=== PATIENT | male | born 1970 | race African-American/Black ===

== ENCOUNTER 2017-09-02 10:33 | Emergency (ER) | payer MEDICAID, OTHER ==
[~2017-09-02] VITALS: Ht 175.3 cm; Wt 111.0 kg
[2017-09-02 10:36] VITALS: Ht 175.3 cm; Wt 111.0 kg
[2017-09-02] MEDS ORDERED: SOD CHLORIDE 0.9% 500 ML IV STA (10:37)
[2017-09-02] MEDS ORDERED: LORAZEPAM 2 MG INJ IV STA (10:37)
[2017-09-02] MEDS ORDERED: SOD CHLORIDE 0.9% 1,000 ML IV STA ×2 (10:37→13:01)
[2017-09-02 11:01] LABS: BASOPHILS % 0.3 % (0.0-2.0); EOSINOPHILS % 0.1 % (0.0-7.0); HEMATOCRIT 41.8 % (42.0-52.0); HEMOGLOBIN 13.8 g/dl (14.0-18.0); LYMPHOCYTES % 7.3 % (15.0-51.0); MEAN CORPUSCULAR HEMOGLOBIN 28.3 pg (29.0-33.0); MEAN CORPUSCULAR VOLUME 85.7 fl (82.0-101.0); MEAN PLATELET VOLUME 9.4 fl (7.4-10.4); MONOCYTE # 0.5 10^3/ul (0.3-0.9); MONOCYTES % 3.3 % (0.0-11.0); NEUTROPHIL # 12.3 10^3/ul (1.6-7.5); NEUTROPHILS % 88.6 % (39.0-77.0); PLATELET COUNT 158 10^3/UL (140-415); RED BLOOD COUNT 4.88 10^6/ul (4.70-6.10); WHITE BLOOD COUNT 13.9 10^3/ul (4.8-10.8)
[2017-09-02 11:23] LABS: ANION GAP 15 (8-16); BLOOD UREA NITROGEN 24 mg/dl (7-20); CALCIUM 9.1 mg/dl (8.4-10.2); CARBON DIOXIDE 30 mmol/L (21-31); CHLORIDE 106 mmol/L (97-110); CREATININE 1.15 mg/dl (0.61-1.24); ETHANOL < 10.0 mg/dl; GLUCOSE 124 mg/dl (70-220); SODIUM 146 mmol/L (135-144)
[2017-09-02] MEDS ORDERED: ONDANSETRON 4 MG INJ IV STA (11:26)
--- NOTE | 2017-09-02 11:47 | RADRPT ---
PROCEDURE: CT Brain without contrast. CLINICAL INDICATION: Altered mental status TECHNIQUE: A CT of the brain was performed on a multi-slice CT scanner utilizing axial imaging fro m the skull base through the vertex without IV contrast. Multiplanar reformatted images were made. Images were reviewed on a PACS workstation. The CTDIvol is 44.26 mGy and the DLP is 720.23 mGycm. One or more of the following dose reduction techniques were used: Automated exposure control. Adjustment of the mA and/or kV according to patient's size. Use of iterative reconstruction technique. DICOM images are available. COMPARISON: None FINDINGS: The sulcal gyral pattern is unremarkable without evidence of effacement. The rees-white matter diff erentiation is intact. No masses, edema or shift is identified. There are no intraparenchymal or extraaxial fluid collecti ons. The visualized paranasal sinuses and mastoid air cells are well-aerated. The skull base and calvari um are intact. IMPRESSION: No acute intracranial abnormalities are identified. RPTAT:AAJJ Physician Jorge Date Time Electronically viewed and signed by Physician Jorge on 09/02/2017 11:47 EDUARDO/
[2017-09-02] MEDS ORDERED: TEMA30CA PO (12:07)
[2017-09-02] MEDS ORDERED: TRAM-40 PO (12:09)
[2017-09-02] MEDS ORDERED: INSU100C SQ (12:09)
[2017-09-02] MEDS ORDERED: APIX5TAB PO (12:11)
[2017-09-02 12:12] LABS: BENZODIAZEPINES Negative (NEGATIVE)
[2017-09-02] MEDS ORDERED: BACL10TA PO (12:12)
[2017-09-02] MEDS ORDERED: CARV25TA97 PO (12:12)
[2017-09-02 12:15] LABS: BARBITURATES Negative (NEGATIVE); CANNABINOIDS Negative (NEGATIVE); COCAINE Negative (NEGATIVE); OPIATES Negative (NEGATIVE)
[2017-09-02] MEDS ORDERED: DOCU250C58 PO (12:16)
[2017-09-02] MEDS ORDERED: FOLI-49 PO (12:18)
[2017-09-02] MEDS ORDERED: ACID1TAB14 PO (12:18)
[2017-09-02] MEDS ORDERED: INSU100I27 SQ (12:19)
[2017-09-02] MEDS ORDERED: LACT10SO5 PO (12:20)
[2017-09-02] MEDS ORDERED: GABA300C16 PO (12:20)
[2017-09-02] MEDS ORDERED: FURO40TA4 PO (12:21)
[2017-09-02] MEDS ORDERED: ESCI10TA PO (12:22)
[2017-09-02] MEDS ORDERED: MAGN400O4 PO (12:22)
[2017-09-02] MEDS ORDERED: MYL80 PO (12:23)
[2017-09-02] MEDS ORDERED: MULTI PO (12:23)
[2017-09-02 13:14] LABS: INR 1.12; PROTIME 14.4 Sec (12.2-14.2); PT RATIO 1.1
[2017-09-02 13:15] LABS: PARTIAL THROMBOPLASTIN TIME 28.8 Sec (25.0-35.0)
[2017-09-02] MEDS ORDERED: DILTIAZEM 25 MG INJ IV ONE ×2 (13:30→16:30)
--- NOTE | 2017-09-02 14:52 | ERD ---
ER Documentation Chief Complaint Chief Complaint bib ra for aloc,blood gloucose 59,d50 given ,tongue bite , possible seizure HPI This is a 46-year-old male history of type 1 diabetes who presents to the emergency room with hypoglycemia and altered mental status. The patient also bit his tongue appears to be confused with a possible seizure. He has no history of seizure. EMS gave the patient dextrose in the field and he has normal glucose now. The patient is a somewhat limited historian even when he clears from what appears to be a seizure. The patient describes a possible cardiac arrest 1 year ago but he is unsure of other medical history. It appears he was given his different insulin rather than his evening dose he was given his daily Humalog. Unclear dose amount. ROS All systems reviewed and are negative except as per history of present illness. Medications Home Meds Reported Medications Simethicone* (Mylicon*) 80 Mg Tab, 80 MG PO Q6H Y for DISTENSION/GAS/BLOATING, TAB 09/02/17 Multivitamins* (Theragran*) 1 Tab Tab, 1 TAB PO DAILY, TAB 09/02/17 Magnesium Hydroxide* (Milk Of Magnesia*) 400 Mg/5 Ml Oral.susp, 30 ML PO Q24H Y for CONSTIPATION, ML 09/02/17 Escitalopram Oxalate* (Lexapro*) 10 Mg Tablet, 10 MG PO DAILY, #30 TAB 09/02/17 Furosemide* (Furosemide*) 40 Mg Tablet, 40 MG PO DAILY, TAB 09/02/17 Lactulose* (Lactulose*) 10 Gm/15 Ml Solution, 10 GM PO Q6 Y for CONSTIPATION, ML 09/02/17 Gabapentin* (Gabapentin*) 300 Mg Capsule, 300 MG PO Q8, #90 CAP 09/02/17 Insulin Detemir (Levemir Flextouch) 100 Unit/1 Ml Insuln.pen, 30 UNIT SQ QPM 09/02/17 Folic Acid* (Folic Acid*) 1 Mg Tablet, 1 MG PO DAILY, TAB 09/02/17 Lactobacillus Acidoph/Bulgaricus* (Floranex*) 1 Each Tablet, 1 TAB.CHEW PO BID, TAB.CHEW 09/02/17 Docusate Sodium* (Colace*) 250 Mg Capsule, 250 MG PO QHS, #30 CAP 09/02/17 Carvedilol* (Coreg*) 25 Mg Tablet, 25 MG PO BID, #60 TAB 09/02/17 Baclofen* (Baclofen*) 10 Mg Tablet, 10 MG PO Q8, TAB 09/02/17 Apixaban* (Eliquis*) 5 Mg Tablet, 5 MG PO BID, TAB 09/02/17 Insulin Lispro (Humalog) 100 Unit/1 Ml Cartridge, 0-10 UNITS SQ AC BREAKFAST 09/02/17 Tramadol Hcl* (Ultram*) 50 Mg Tablet, 50 MG PO Q4 Y for PAIN, TAB 09/02/17 Temazepam* (Temazepam*) 30 Mg Capsule, 30 MG PO HS Y for INSOMNIA, CAP 09/02/17 Allergies Allergies: Coded Allergies: No Known Allergy (Unverified , 09/02/17) PMhx/Soc History of Surgery: Yes (right bka) Anesthesia Reaction: No Hx Neurological Disorder: No Hx Respiratory Disorders: No Hx Cardiac Disorders: Yes (htn) Hx Psychiatric Problems: No Hx Miscellaneous Medical Probl: Yes (dm) Hx Alcohol Use: No Hx Substance Use: No Hx Tobacco Use: No Smoking Status: Never smoker FmHx Family History: diabetes Physical Exam Vitals Vital Signs Date Time Temp Pulse Resp B/P Pulse Ox O2 Delivery O2 Flow Rate FiO2 09/02/17 13:59 105 22 160/75 98 Room Air 09/02/17 10:36 98.1 144 18 141/100 100 Physical Exam General: Well developed, well nourished, no acute distress, appears to be postictal but improving Head: Normocephalic, atraumatic. Eyes: Pupils equally reactive, EOM intact ENT: Moist mucous membranes, abrasion to lateral aspect of tongue Neck: Supple, no lymphadenopathy Respiratory: Lungs clear bilaterally, no distress Cardiovascular: Tachycardia, no murmurs, rubs, or gallops Abdominal: Soft, non-tender, non-distended, no peritoneal signs : Deferred MSK: No edema, no unilateral swelling, 5/5 strength Neurologic: Alert and oriented to person postictal, moving all extremities, normal speech, no focal weakness, no cerebellar signs, no meningismus Skin: No rash Psych: Normal mood Result Diagram: 09/02/17 1055 09/02/17 1055 Results 24 hrs Laboratory Tests Test 09/02/17 10:50 09/02/17 10:51 09/02/17 10:55 09/02/17 11:30 Bedside Glucose 109mg/dL Troponin I < 0.012ng/ml White Blood Count 13.910^3/ul Red Blood Count 4.8810^6/ul Hemoglobin 13.8g/dl Hematocrit 41.8% Mean Corpuscular Volume 85.7fl Mean Corpuscular Hemoglobin 28.3pg Mean Corpuscular Hemoglobin Concent 33.0g/dl Red Cell Distribution Width 14.0% Platelet Count 77327^3/UL Mean Platelet Volume 9.4fl Neutrophils % 88.6% Lymphocytes % 7.3% Monocytes % 3.3% Eosinophils % 0.1% Basophils % 0.3% Nucleated Red Blood Cells % 0.0/100WBC Neutrophils # 12.310^3/ul Lymphocytes # 1.010^3/ul Monocytes # 0.510^3/ul Eosinophils # 0.010^3/ul Basophils # 0.010^3/ul Nucleated Red Blood Cells # 0.010^3/ul Prothrombin Time 14.4Sec Prothrombin Time Ratio 1.1 INR International Normalized Ratio 1.12 Activated Partial Thromboplast Time 28.8Sec Sodium Level 146mmol/L Potassium Level 5.0mmol/L Chloride Level 106mmol/L Carbon Dioxide Level 30mmol/L Anion Gap 15 Blood Urea Nitrogen 24mg/dl Creatinine 1.15mg/dl Glucose Level 124mg/dl Calcium Level 9.1mg/dl Ethyl Alcohol Level < 10.0mg/dl Urine Opiates Screen Negative Urine Barbiturates Negative Urine Amphetamines Screen Negative Urine Benzodiazepines Screen Negative Urine Cocaine Screen Negative Urine Cannabinoids Negative Test 09/02/17 11:51 09/02/17 13:47 09/02/17 14:51 Bedside Glucose 112mg/dL 106mg/dL 81mg/dL Current Medications Medications (Trade) Dose Ordered Sig/Aditya Route PRN Reason Start Time Stop Time Status Last Admin Dose Admin Sodium Chloride 500 ml @ 500 mls/hr Q1H STAT IV 09/02/17 10:37 09/02/17 11:36 DC 09/02/17 10:49 Sodium Chloride (NS) 1,000 ml @ 1,000 mls/hr Q1H STAT IV 09/02/17 10:37 09/02/17 11:36 DC 09/02/17 10:47 Lorazepam (Ativan) 0.5 mg ONCE STAT IV 09/02/17 10:37 09/02/17 10:39 DC 09/02/17 10:47 Ondansetron HCl 4 mg 4 mg ONCE STAT IV 09/02/17 11:26 09/02/17 11:39 DC 09/02/17 11:44 Sodium Chloride (NS) 1,000 ml @ 1,000 mls/hr Q1H STAT IV 09/02/17 13:01 09/02/17 14:00 DC 09/02/17 13:15 Diltiazem HCl (Cardizem Iv) 20 mg ONCE ONCE IV 09/02/17 13:30 09/02/17 13:31 DC 09/02/17 13:15 Procedures/MDM EKG, MONITORS, & DIAGNOSTIC IMAGING: EKG #1 EKG: I reviewed and interpreted a 12-lead EKG. Rhythm: Narrow complex tachycardia with apparent P waves at 140 Ectopy: None Intervals: No abnormalities ST segments: No elevations or depressions T waves: No contiguous inversions Repeat EKG EKG: I reviewed and interpreted a 12-lead EKG. Rhythm: Slower rate around 120 reveals flutter waves consistent with atrial flutter with rapid ventricular response Ectopy: None Intervals: No abnormalities ST segments: No elevations or depressions T waves: No contiguous inversions CT brain: No evidence of acute intracranial process LAB INTERPRETATION: Negative troponin MEDICAL DECISION MAKING: The patient presents with 2 major issues. The first is a seizure, new onset seizure. This is likely secondary to hypoglycemia possibly related to inadvertent or inappropriate dosing of insulin. The patient has since responded. His mental status is improving though he is still occasionally forgetful. It is unclear if this is baseline for the patient may be has some underlying anoxic injury related to what he is describing is a cardiac arrest 1 year ago. From a hypoglycemia standpoint the patient was given a complex carbohydrate meal and his glucose values have been study. The patient was found to have significant tachycardia that was initially thought to be sinus tachycardia. However he was given IV fluids. His rate dropped into the 120s and flutter waves were made available and apparent. The patient was given 20 mg of IV Cardizem with a dramatic rate control. He is now around 100, and remains hemodynamically stable with a negative troponin. He states that he has never known about a diagnosis of atrial fibrillation or atrial flutter. This could be related to underlying cardiac etiology. However , the patient is also reported to be on Eliquis. This does raise the concern of a chronic issue for this patient but he cannot articulate this and he does not have an EMR record that can support this thought process. For this reason I believe he would benefit from inpatient hospitalization and further investigation. ER COURSE: Patient was given IV fluids, small dose of Ativan, seizure precautions were initiated. The patient was given 20 of Cardizem. He has no chest pain and no evidence of ischemia. The patient is stable for transfer at this time. He does not require drips. The patient has no evidence of infectious process and does not require lumbar puncture. I kept the patient and/or family informed of laboratory and diagnostic imaging results throughout the emergency room course. DISPOSITION PLAN: The patient's insurance is capitated to [place]. The patient is agreeable to transfer and stable for transfer. CONSULTATION: Accepting care team and consultations: I discussed the current laboratory data, diagnostic imaging and emergency care provided. Admitting team: Dr William has accepted Admitting team indication: Insurance directed Departure Diagnosis: Primary Impression: Hypoglycemia Additional Impressions: New onset seizure Atrial flutter with rapid ventricular response Condition: Stable Patient Instructions: Hypoglycemia (Low Blood Sugar), Seizure, New Onset, Unk Cause [Adult] Referrals: [facility] YOU HAVE RECEIVED A MEDICAL SCREENING EXAM AND THE RESULTS INDICATE THAT YOU DO NOT HAVE A CONDITION THAT REQUIRES URGENT TREATMENT IN THE EMERGENCY DEPARTMENT. FURTHER EVALUATION AND TREATMENT OF YOUR CONDITION CAN WAIT UNTIL YOU ARE SEEN IN YOUR DOCTORS OFFICE WITHIN THE NEXT 1-2 DAYS. IT IS YOUR RESPONSIBILITY TO MAKE AN APPOINTMENT FOR FOLOW-UP CARE. IF YOU HAVE A PRIMARY DOCTOR --you should call your primary doctor and schedule an appointment IF YOU DO NOT HAVE A PRIMARY DOCTOR YOU CAN CALL OUR PHYSICIAN REFERRAL HOTLINE AT IF YOU CAN NOT AFFORD TO SEE A PHYSICIAN YOU CAN CHOSE FROM THE FOLLOWING [facility] [address] [facility] [address] [facility] [facility] [address] [facility] [address] [facility] [address] [facility]. [facility] [address] [facility]. [facility] YOU HAVE RECEIVED A MEDICAL SCREENING EXAM AND THE RESULTS INDICATE THAT YOU DO NOT HAVE A CONDITION THAT REQUIRES URGENT TREATMENT IN THE EMERGENCY DEPARTMENT. FURTHER EVALUATION AND TREATMENT OF YOUR CONDITION CAN WAIT UNTIL YOU ARE SEEN IN YOUR DOCTORS OFFICE WITHIN THE NEXT 1-2 DAYS. IT IS YOUR RESPONSIBILITY TO MAKE AN APPOINTMENT FOR FOLOW-UP CARE. IF YOU HAVE A PRIMARY DOCTOR --you should call your primary doctor and schedule and appointment IF YOU DO NOT HAVE A PRIMARY DOCTOR YOU CAN CALL OUR PHYSICIAN REFERRAL HOTLINE AT . IF YOU CAN NOT AFFORD TO SEE A PHYSICIAN YOU CAN CHOSE FROM THE FOLLOWING [facility]: [facility] [address] [place] [address] [facility] [address] [place], [place] [id number] [place] [address] [address] [place] [address] Additional Instructions: Call your primary care doctor TOMORROW for an appointment during the next 1 WEEK.Tell the legal secretary receptionist that you were referred from this facility.See the doctor sooner or return here if your condition worsens before your appointment time. SAUMYA MELO MD Sep 02, 2017 14:52
[2017-09-02 15:35] LABS: ETHANOL < 10.0 mg/dl
[2017-09-02 16:05] LABS: T3 UPTAKE 40.5 % (23.5-40.5)
[2017-09-02 18:48] VITALS: TEMP 98.1
--- NOTE | 2017-09-02 18:53 | EN ---
Date/Time of Note Date/Time of Note DATE: 09/02/17 TIME: 18:50 ER Progress Note Observation Note: Time: 4 hour Family Hx: No Hypertension Evaluation: Multiple exams showed improving symptoms and no evidence of clinical deterioration He did go back to atrial flutter with RVR, was treated with Cardizem 20 mg IV with good response I discussed the findings with the patient. I discussed the patient with the on- call hospitalist Dr. Medel. who was made aware of the lab, the treatment, the patient condition. The patient is admitted to Tel at 6:45 pm DEB CHAVEZ MD Sep 02, 2017 18:53
[2017-09-02 21:00] VITALS: BP 128/74; PULSE 120; RESP 20
== END 2017-09-02 21:10 | disposition short-term general hospital (02) ==
LOC: E/R 10:33
DX: E10.649 Type 1 diabetes mellitus with hypoglycemia without coma (principal); R56.9 Unspecified convulsions; I48.91 Unspecified atrial fibrillation; I10 Essential (primary) hypertension; Z79.4 Long term (current) use of insulin
CPT/HCPCS: 36415; 70450; 80048; 80306; 80307; 82962; 84436; 84479; 84484; 85025; 85610; 85730; 96374; 96375; 96376; J2060; J2405; J7030; J7040; Z7502; Z7610; 93005